=== PATIENT | male | born 1990 | race Caucasian/White ===

== ENCOUNTER 2025-03-17 09:00 | Outpatient (RCR) | payer OTHER, SELFPAY ==
--- NOTE | 2025-02-23 12:51 | OT.OPPOC ---
Physical, Occupational & Speech Therapy At [facility] Kevin Peck [id number] 1990 Visit Care Team Role Provider Type Julien Perry MD Attending Provider Physician Family Provider Primary Care Provider Referring Provider Address: [facility] [place], [address] Occupational Therapy Plan of Care OT Outpatient Adult Evaluation Start: 02/22/25 09:41 Freq: Status: Active Protocol: Document 02/23/25 09:00 (Rec: 02/22/25 09:45 [id number]) General Information - Adult Visit Information Visit Number Plan of Care Dates 02/23/25-05/18/25 Insurance no PA req'd;no copay;$125 deductible satisfied;max 60 Information PT/OT/ST combined Session Time Visit Start Date 02/23/25 Visit Start Time 09:00 Visit Stop Time 09:55 Setting Treatment Setting Outpatient Care Visit Type Note Type Initial Evaluation Referral Referring Physician Dr. Julien Perry Reason for Referral R shoulder pain Identification Identification Yes Confirmed Identification EMR Confirmed By Social Information Social History The pain has improved with the little bit of strengthening I was doing but I would like to be proactive in case it gets worse again Patient Questionnaires Quick Dash- Upper Extremity Quick Dash UE Score 22.7 Quick Dash UE 20 to 39% Impaired (Score 20-39) Impairment Quick Dash- Work and Sports Modules Quick Dash W&S Score W: 0 Quick Dash Work and 0% Impaired (Score 0) Sport Impairment Goals Objective Measurements Objective Cervical screen: Negative Measurements Neer?s test: Positive Gomez-Cody: Negative Painful arc: Present at approximately 140 degrees of flexion Empty can test: Negative Lift-off test: Positive for discomfort and mild rhomboid twinge Belly press test: Positive for mild rhomboid twinge ( not pain) Cross-body adduction test: Positive for AC joint pain AC joint palpation: Tenderness present O?Deandre?s test: Positive with palms up, negative with palms down Sulcus sign: Negative Load and shift test: Negative AROM/MMT: Within normal limits bilaterally Posture: Fair, mild anterior scapular tilt noted Pain: 1?2/10 currently, previously 5?6/10 at onset Additional observations: Tension throughout shoulder girdle; difficulty relaxing during PROM; compensatory upper trapezius activation with humeral elevation Treatment Treatment The patient was educated on the relationship between postural imbalance and muscle tension, emphasizing how overuse of anterior musculature and underuse of posterior stabilizers can contribute to shoulder dysfunction. Education included discussion of shoulder girdle tension, postural awareness, and the role of balanced strengthening for injury prevention and joint health, particularly considering the patient?s concerns regarding potential ankylosing spondylitis. Foam rolling techniques were introduced for the upper thoracic and scapular regions to promote relaxation and mobility, with plans to initiate a formal home exercise program at the next session. The patient demonstrated good understanding and motivation to prevent symptom progression. Short Term Goals Short Term Goals (Within 4 Weeks) 1. The patient will demonstrate independence with foam rolling and postural re-education program with correct form and body awareness to promote shoulder girdle relaxation and improved posture. 2. The patient will report decreased subjective shoulder tension and elimination of pain with daily activities including writing and typing, maintaining pain at or below 1/10. 3. The patient will demonstrate improved humeral elevation without compensatory shoulder hiking in at least 3/5 observed repetitions during therapeutic exercise. Mcc Goals Mcc Goals (Within 12 weeks): 1. The patient will demonstrate full functional use of the right upper extremity without clicking, popping, or pain during all work and leisure activities. 2. The patient will demonstrate symmetrical scapular alignment and improved posture with neutral scapular tilt at rest and during movement-based tasks. 3. The patient will achieve balanced strength of anterior and posterior shoulder stabilizers with all MMTs remaining within normal limits and pain-free. 4. The patient will verbalize understanding and demonstrate maintenance strategies, including independent use of self-massage, stretching, and strengthening techniques to prevent recurrence of symptoms. Assessment/Plan Assessment Patient Response Good Rehabilitation Good Potential Impairments ADLs,Body Mechanics,Flexibility,Functional Activities, Identified Pain,Weakness,Posture,Range of Motion,Recreational Activities,Meaningful Activities,Stiffness,Soft Tissue Mobility Treatment Assessment 34-year-old [id number] male referred for evaluation of right shoulder pain. He reports onset of symptoms approximately five months ago, describing an initial pain level of 5?6/10 localized near the humeral head and pectoral insertion, which has since improved with intermittent use of light resistance exercises prescribed by his physician. He currently reports pain of 1?2/10 with intermittent clicking and popping, particularly when the humerus is internally rotated during hyperextension. Pain was previously exacerbated by writing, typing, and opening jars but is now primarily associated with certain positions and tension localized around the right rhomboid region. Objective findings are most consistent with mild right shoulder impingement and AC joint irritation, with associated scapulothoracic muscle tension and postural imbalance. Positive Neer?s, cross-body adduction, and O ?Deandre?s (palms up) tests indicate potential irritation of the subacromial and acromioclavicular regions, while negative Gomez-Cody, empty can, and instability testing suggest that significant structural compromise is unlikely. The patient demonstrates mild anterior scapular tilt, upper trapezius overactivation with humeral elevation, and difficulty relaxing during passive motion, consistent with compensatory movement patterns and shoulder girdle tightness. Treatment will be guided by a movement-based and postural retraining approach emphasizing scapulothoracic rhythm, neuromuscular re-education, and soft tissue mobility. Focus will be placed on reducing muscle tension, improving balance between anterior and posterior stabilizers, and promoting functional alignment to prevent symptom recurrence. Given his concern about potential ankylosing spondylitis and long -term joint health, intervention will also incorporate education and self-management strategies for sustained postural awareness and prevention of inflammatory strain. Reviewed with Goals,Progress Being Made,Home Exercise Program Patient Patient Good Understanding Plan Length of treatment 12 (weeks) Plan of Care Start 02/23/25 Date Plan of Care End 05/18/25 Date Comment 1-2x/week PRN Treatment Frequency Twice a Week Treatment Duration 45 Minutes Therapeutic Contents Active Range of Motion,Client Education,Functional Activities,Home Exercise Program,Joint Protection, Manual Therapy,Education,Neuromuscular Re-Education, Self-Care,Stretching/Flexibility Activities,Therapeutic Activities,Therapeutic Exercises,Modalities Modalities As Needed Types of Modalities Ice Massage,Other Additional Types of MHP, paraffin Modalities Patient Instruction Plan of Care,Questions/Concerns Patient Continue with Current Program Recommendations Electronically Signed by: Kathia Mayfield OT 02/23/25 0552 If you are in agreement with this Plan of Care, please return a signed and dated copy. I have reviewed this Plan of Care and certify that the skilled therapy services above are required to meet the patient?s needs. Physician Signature Date Printed Name and Credentials Clinical Instructor Signature Printed Name and Credentials
--- NOTE | 2025-02-25 10:08 | OT.OP.TRT ---
Visit Care Team Role Provider Type Julien Perry MD Attending Provider Physician Family Provider Primary Care Provider Referring Provider Specialty: Family Practice Obstetrics [facility] [address], [place], [address] Email: [email or web address] Occupational Therapy Treatment Note OT Outpatient Treatment Note - Adult Start: 02/22/25 09:41 Freq: Status: Active Protocol: Document 02/25/25 09:00 (Rec: 02/24/25 11:58 [id number]) OT Outpatient Adult Treatment Note Session Time Visit Start Date 02/25/25 Visit Start Time 09:00 Visit Stop Time 09:45 Visit Information Visit Number Plan of Care Dates 02/23/25-05/18/25 Insurance no PA req'd;no copay;$125 deductible satisfied;max 60 Information PT/OT/ST combined Setting Treatment Setting Outpatient Care Visit Type Note Type Treatment Note - Subjective Identification Type Name Identification Medical Record Reconciled With Observations I do feel like there is some reduced tension just from today! - Objective Short Term Goals (Within 4 Weeks) 1. The patient will demonstrate independence with foam rolling and postural re-education program with correct form and body awareness to promote shoulder girdle relaxation and improved posture. 2. The patient will report decreased subjective shoulder tension and elimination of pain with daily activities including writing and typing, maintaining pain at or below 1/10. 3. The patient will demonstrate improved humeral elevation without compensatory shoulder hiking in at least 3/5 observed repetitions during therapeutic exercise. Group Home Goals (Within 12 weeks): 1. The patient will demonstrate full functional use of the right upper extremity without clicking, popping, or pain during all work and leisure activities. 2. The patient will demonstrate symmetrical scapular alignment and improved posture with neutral scapular tilt at rest and during movement-based tasks. 3. The patient will achieve balanced strength of anterior and posterior shoulder stabilizers with all MMTs remaining within normal limits and pain-free. 4. The patient will verbalize understanding and demonstrate maintenance strategies, including independent use of self-massage, stretching, and strengthening techniques to prevent recurrence of symptoms. - Treatment 1 Descriptor The patient was seen for initiation of a home exercise program and therapeutic education. The HEP included scapular retraction and depression, thoracic extension on foam roller (pt familiar with foam rolling, only verbally reviewed proper technique this date), doorway pectoral stretch, prone scapular setting (?T?), prone ( Y), supine serratus punch, and shoulder external rotation with light theraband. Each exercise was completed for 1x10 with maximal verbal and visual cues provided to ensure correct form and pacing. Education was provided throughout regarding the likely etiology of symptoms, relevant anatomy, and how strengthening posterior stabilizers while releasing anterior tension promotes improved postural balance, bony alignment, and scapulohumeral rhythm. The patient was instructed on safe and effective foam rolling technique, emphasizing slow and controlled movements along the spine to protect the lumbar region. A therapeutic tuning fork sequence was completed using 128 Hz and 256 Hz frequencies targeting the upper trapezius, rhomboids, pectoralis insertion, scapular border, and AC/ glenohumeral joints to reduce muscle tension, enhance proprioceptive feedback, and promote joint balance. The patient reported subjective improvement in shoulder girdle mobility and decreased muscular tension following treatment and demonstrated good understanding of all education provided. Visual Cues Max Cues Verbal Cues Max Cues Tolerance Excellent Modifications No Required Exercises 1 Descriptor 1x10 for the followin. Scapular retraction and depression 2. Doorway pectoral stretch 3. Prone scapular setting ?T? 4. Prone Y's 5. Supine serratus punch 6. Shoulder external rotation with light theraband Side Both Sets 1 Repetitions 10 Visual Cues Max Cues Verbal Cues Max Cues Tolerance Excellent Modifications No Required - Assessment Patient Response to Good Treatment Rehabilitation Good Potential Impairments ADLs,Flexibility,Functional Activities,Pain,Posture, Identified Range of Motion,Recreational Activities,Meaningful Activities,Stiffness,Soft Tissue Mobility Progress Towards Good Progress Goals Assessment of Improving Overall Progress Assessment of The patient demonstrated good participation and Improvement engagement throughout today?s session, responding positively to both neuromuscular and soft-tissue interventions. Improved shoulder girdle mobility and decreased tension following tuning fork application suggest that current symptoms are largely postural and muscular in nature, consistent with mild impingement and AC joint irritation secondary to anterior dominance and posterior chain under-recruitment. The patient shows good body awareness, motivation, and understanding of how therapeutic techniques address underlying imbalances contributing to discomfort. Given his positive response to intervention, strong motivation for prevention, and mild symptom severity, he demonstrates excellent rehabilitation potential. Continued skilled occupational therapy is indicated to reinforce scapular stabilization, progress strengthening, and restore full, pain-free movement patterns for long-term shoulder health and function. Home Exercise scapular retraction/depression, prone T's and Y/s, Program foam roller thoracic extension, pec stretch, supine serratus punch, shoulder external rotation with resistance band Reviewed with Goals,Progress Being Made,Home Exercise Program Patient/Caregiver Patient/Caregiver Good Understanding - Plan Therapy Continue with Current Program Recommendations Amount of Therapy 2-3 Months Recommended Comment 1-2x/week PRN Frequency of Twice a Week Treatment Length of Session 45 Minutes Therapeutic Contents Active Range of Motion,Client Education,Functional Activities,Home Exercise Program,Joint Protection, Manual Therapy,Education,Self-Care,Stretching/ Flexibility Activities,Therapeutic Activities, Therapeutic Exercises,Modalities Modalities As Needed Types of Modalities Ice Massage,Other Additional Types of MHP Modalities
--- NOTE | 2025-03-01 10:24 | OT.OP.TRT ---
Visit Care Team Role Provider Type Julien Perry MD Attending Provider Physician Family Provider Primary Care Provider Referring Provider Specialty: Family Practice Obstetrics [facility] [address], [place], [address] Email: [email or web address] Occupational Therapy Treatment Note OT Outpatient Treatment Note - Adult Start: 02/22/25 09:41 Freq: Status: Active Protocol: Document 03/01/25 09:00 (Rec: 02/25/25 10:36 [id number]) OT Outpatient Adult Treatment Note Session Time Visit Start Date 03/01/25 Visit Start Time 09:00 Visit Stop Time 09:45 Visit Information Visit Number 3 of Plan of Care Dates 02/23/25-05/18/25 Insurance no PA req'd;no copay;$125 deductible satisfied;max 60 Information PT/OT/ST combined Setting Treatment Setting Outpatient Care Visit Type Note Type Treatment Note - Subjective Identification Type Name Identification Medical Record Reconciled With Observations I got a massage this weekend and it definitely feels more loose Patient/Caregiver Excellent Compliance with Home Exercise Program - Objective Short Term Goals (Within 4 Weeks) 1. The patient will demonstrate independence with foam rolling and postural re-education program with correct form and body awareness to promote shoulder girdle relaxation and improved posture. 2. The patient will report decreased subjective shoulder tension and elimination of pain with daily activities including writing and typing, maintaining pain at or below 1/10. 3. The patient will demonstrate improved humeral elevation without compensatory shoulder hiking in at least 3/5 observed repetitions during therapeutic exercise. Skilled Nursing Goals (Within 12 weeks): 1. The patient will demonstrate full functional use of the right upper extremity without clicking, popping, or pain during all work and leisure activities. 2. The patient will demonstrate symmetrical scapular alignment and improved posture with neutral scapular tilt at rest and during movement-based tasks. 3. The patient will achieve balanced strength of anterior and posterior shoulder stabilizers with all MMTs remaining within normal limits and pain-free. 4. The patient will verbalize understanding and demonstrate maintenance strategies, including independent use of self-massage, stretching, and strengthening techniques to prevent recurrence of symptoms. - Manual Therapy Manual Therapy Moist heat pack was applied to the right shoulder girdle to promote soft tissue relaxation and prepare tissues for manual intervention. A tuning fork sequence was then performed using 128 Hz frequency over the upper trapezius, rhomboids, pectoralis major insertion, latissimus dorsi, and triceps insertion to decrease muscle tone and facilitate neuromuscular relaxation. This was followed by soft tissue massage to the same regions of the posterior shoulder and scapular complex to further reduce muscular tension and improve tissue extensibility. A contract?relax technique was then applied to the right upper trapezius and rhomboids to address trigger points and restore scapular mobility. Palpation revealed significant hypertonicity and restricted scapular glide at the start of treatment, with notable improvement in soft tissue pliability and scapular mobility?most significant at the right upper trapezius?by the end of session. The patient reported subjective improvement in both tension and ease of shoulder movement following session. - Assessment Patient Response to Good Treatment Rehabilitation Good Potential Impairments ADLs,Flexibility,Functional Activities,Pain,Posture, Identified Range of Motion,Recreational Activities,Meaningful Activities,Stiffness,Soft Tissue Mobility Progress Towards Good Progress Goals Assessment of Improving Overall Progress Assessment of The patient continues to present with marked shoulder Improvement girdle tightness and scapular restriction consistent with persistent soft tissue imbalance contributing to altered scapulohumeral rhythm. He responded positively to combined thermal, vibratory, and manual interventions with measurable improvement in tissue mobility and pain-free range. His compliance with the home exercise program remains excellent, demonstrating independence, insight into proper form, and the ability to self-correct technique for optimal muscle activation. Progress to date suggests strong carryover of therapeutic education and good integration of neuromuscular control strategies. The patient continues to make steady progress toward restoring normal scapular mobility and balanced muscle activation and will continue to benefit from skilled occupational therapy to further address soft tissue flexibility, postural alignment, and movement efficiency for sustained functional improvement. Home Exercise scapular retraction/depression, prone T's and Y/s, Program foam roller thoracic extension, pec stretch, supine serratus punch, shoulder external rotation with resistance band Reviewed with Goals,Progress Being Made,Home Exercise Program Patient/Caregiver Patient/Caregiver Good Understanding - Plan Therapy Continue with Current Program Recommendations Amount of Therapy 2-3 Months Recommended Comment 1-2x/week PRN Frequency of Twice a Week Treatment Length of Session 45 Minutes Therapeutic Contents Active Range of Motion,Client Education,Functional Activities,Home Exercise Program,Joint Protection, Manual Therapy,Education,Self-Care,Stretching/ Flexibility Activities,Therapeutic Activities, Therapeutic Exercises,Modalities Modalities As Needed Types of Modalities Ice Massage,Other Additional Types of MHP Modalities
--- NOTE | 2025-03-03 11:59 | OT.OP.TRT ---
Visit Care Team Role Provider Type Julien Perry MD Attending Provider Physician Family Provider Primary Care Provider Referring Provider Specialty: Family Practice Obstetrics [facility] [address], [place], [address] Email: [email or web address] Occupational Therapy Treatment Note OT Outpatient Treatment Note - Adult Start: 02/22/25 09:41 Freq: Status: Active Protocol: Document 03/03/25 11:54 (Rec: 03/03/25 11:58 [id number]) OT Outpatient Adult Treatment Note Session Time Visit Start Date 03/03/25 Visit Start Time 09:00 Visit Stop Time 10:00 Visit Information Visit Number 4 of 24 Plan of Care Dates 02/23/25-05/18/25 Insurance no PA req'd;no copay;$125 deductible satisfied;max 60 Information PT/OT/ST combined Setting Treatment Setting Outpatient Care Visit Type Note Type Treatment Note - Subjective Identification Type Name Identification Medical Record Reconciled With Observations I am definitely noticing increased range of motion in general and definitely increased pain-free motion Patient/Caregiver Excellent Compliance with Home Exercise Program - Objective Short Term Goals (Within 4 Weeks) 1. The patient will demonstrate independence with foam rolling and postural re-education program with correct form and body awareness to promote shoulder girdle relaxation and improved posture. 2. The patient will report decreased subjective shoulder tension and elimination of pain with daily activities including writing and typing, maintaining pain at or below 1/10. 3. The patient will demonstrate improved humeral elevation without compensatory shoulder hiking in at least 3/5 observed repetitions during therapeutic exercise. Alf Goals (Within 12 weeks): 1. The patient will demonstrate full functional use of the right upper extremity without clicking, popping, or pain during all work and leisure activities. 2. The patient will demonstrate symmetrical scapular alignment and improved posture with neutral scapular tilt at rest and during movement-based tasks. 3. The patient will achieve balanced strength of anterior and posterior shoulder stabilizers with all MMTs remaining within normal limits and pain-free. 4. The patient will verbalize understanding and demonstrate maintenance strategies, including independent use of self-massage, stretching, and strengthening techniques to prevent recurrence of symptoms. - Treatment 1 Descriptor The patient demonstrated good carryover from prior sessions, completing all progressed resistive exercises with minimal verbal and visual cues needed for correction. Form and muscle activation were appropriate , with evident improvement in scapular stability and reduction in compensatory shoulder hiking during movement. He tolerated Body Blade activities well, noting a moderate challenge and increased awareness of deeper stabilizing muscles without pain. Education was provided throughout regarding scapulohumeral rhythm, the role of posterior stabilizers in shoulder alignment , and strategies to maintain proper scapular positioning during dynamic tasks. Additional cues were provided for breathing and controlled pacing to enhance neuromuscular coordination. The patient verbalized understanding of all concepts and reported that the exercises felt productive and symptom-free. Exercises 1 Descriptor Reviewed prior HEP: scapular retraction/depression, foam roller thoracic extension, doorway pec stretch, prone ?T,? serratus punch, and external rotation with band. Progressed HEP with the following strengthening activities: Theraband Rows with level 2 band? 2 sets of 10 Standing ?W? External Rotation with level 2 band? 2 sets of 10 Prone ?Y? ? 2 sets of 10 Serratus Wall Slides with Band at wrists ? 2 sets of 10 Scaption with 1lb hand weights (thumbs up position) ? 2 sets of 10 Body Blade Trainin sets of 30 seconds each for scaption, shoulder flexion, and horizontal abduction/ adduction. Arm Bike: 5 minutes with light resistance focusing on scapular control and postural awareness during movement . Visual Cues Min Cues Verbal Cues Min Cues Tolerance Excellent Modifications No Required - Assessment Patient Response to Good Treatment Rehabilitation Good Potential Impairments ADLs,Flexibility,Functional Activities,Pain,Posture, Identified Range of Motion,Recreational Activities,Meaningful Activities,Stiffness,Soft Tissue Mobility Progress Towards Good Progress Goals Assessment of Improving Overall Progress Assessment of The patient continues to make excellent progress toward Improvement therapeutic goals, demonstrating improved strength, endurance, and motor control of the right shoulder complex. Observable reduction in scapular hiking and improved rhythm during both resistive and functional activities indicate enhanced coordination between the rotator cuff and scapular stabilizers. Pain remains minimal and brief, occurring only at end-range internal rotation with hyperextension. His tolerance for resistive progression and dynamic stabilization exercises reflects improved tissue mobility, postural awareness, and neuromuscular integration. The patient?s strong motivation, compliance with HEP, and consistent symptom reduction suggest a favorable prognosis for full functional recovery. Continued skilled occupational therapy will focus on reinforcing strength and endurance of the shoulder stabilizers and ensuring independence with a long-term maintenance program for sustained joint health and mobility. Home Exercise scapular retraction/depression, prone T's and Y/s, Program foam roller thoracic extension, pec stretch, supine serratus punch, shoulder external rotation with resistance band-PROGRESSED to add theraband standing rows, Serratus wall slides with band, scaption with light weights Reviewed with Goals,Progress Being Made,Home Exercise Program Patient/Caregiver Patient/Caregiver Good Understanding - Plan Therapy Continue with Current Program Recommendations Amount of Therapy 2-3 Months Recommended Comment 1-2x/week PRN Frequency of Twice a Week Treatment Length of Session 45 Minutes Therapeutic Contents Active Range of Motion,Client Education,Functional Activities,Home Exercise Program,Joint Protection, Manual Therapy,Education,Self-Care,Stretching/ Flexibility Activities,Therapeutic Activities, Therapeutic Exercises,Modalities Modalities As Needed Types of Modalities Ice Massage,Other Additional Types of MHP Modalities
--- NOTE | 2025-03-08 10:10 | OT.OP.TRT ---
Visit Care Team Role Provider Type Julien Perry MD Attending Provider Physician Family Provider Primary Care Provider Referring Provider Specialty: Family Practice Obstetrics [facility] [address], [place], [address] Email: [email or web address] Occupational Therapy Treatment Note OT Outpatient Treatment Note - Adult Start: 02/22/25 09:41 Freq: Status: Active Protocol: Document 03/08/25 09:00 (Rec: 03/04/25 12:53 [id number]) OT Outpatient Adult Treatment Note Session Time Visit Start Date 03/08/25 Visit Start Time 09:00 Visit Stop Time 10:00 Visit Information Visit Number 5 of 24 Plan of Care Dates 02/23/25-05/18/25 Insurance no PA req'd;no copay;$125 deductible satisfied;max 60 Information PT/OT/ST combined Setting Treatment Setting Outpatient Care Visit Type Note Type Treatment Note - Subjective Identification Type Name Identification Medical Record Reconciled With Observations It has seemed a bit more tense since increasing resistance but it feels a lot more mobile today after all those stretches Patient/Caregiver Excellent Compliance with Home Exercise Program - Objective Short Term Goals (Within 4 Weeks) 1. The patient will demonstrate independence with foam rolling and postural re-education program with correct form and body awareness to promote shoulder girdle relaxation and improved posture. 2. The patient will report decreased subjective shoulder tension and elimination of pain with daily activities including writing and typing, maintaining pain at or below 1/10. 3. The patient will demonstrate improved humeral elevation without compensatory shoulder hiking in at least 3/5 observed repetitions during therapeutic exercise. Fruit Grading Supervisor Goals (Within 12 weeks): 1. The patient will demonstrate full functional use of the right upper extremity without clicking, popping, or pain during all work and leisure activities. 2. The patient will demonstrate symmetrical scapular alignment and improved posture with neutral scapular tilt at rest and during movement-based tasks. 3. The patient will achieve balanced strength of anterior and posterior shoulder stabilizers with all MMTs remaining within normal limits and pain-free. 4. The patient will verbalize understanding and demonstrate maintenance strategies, including independent use of self-massage, stretching, and strengthening techniques to prevent recurrence of symptoms. - Treatment 1 Descriptor Session focused on education and guided practice of foam rolling and stretching techniques to address persistent myofascial tension contributing to shoulder and rib discomfort. Patient was instructed in strategies for identifying effective stretch positions by body awareness, recognizing areas of tenderness, and modulating pressure for tolerance. Foam rolling techniques were reviewed for the pectoralis major/minor , lateral rib wall, thoracic paraspinals, and rhomboids , emphasizing slow, mindful application and the option to rest and breathe into the roller rather than using continuous rolling motion. Education included discussion of modifications using a rolled towel or repositioning to distribute body weight and protect sensitive areas along the ribs. Patient performed and required maximal verbal and visual cues for correct return demonstration of thread- the-needle stretch, elbow circles (from a flexed position near shoulder height), chest openers, and pectoral doorway stretches with elbows bent. Education emphasized thoracic extension, controlled breathing, and the role of postural balance and soft tissue flexibility in maintaining shoulder mobility. Patient verbalized understanding and demonstrated improved quality of movement following practice. He was advised to maintain current strengthening resistance within HEP while prioritizing addition of stretching and foam rolling for recovery and balance. - Assessment Patient Response to Good Treatment Rehabilitation Good Potential Impairments ADLs,Flexibility,Functional Activities,Pain,Posture, Identified Range of Motion,Recreational Activities,Meaningful Activities,Stiffness,Soft Tissue Mobility Progress Towards Good Progress Goals Assessment of Improving Overall Progress Assessment of The patient demonstrated good participation and insight Improvement during today?s session, actively engaging in education and technique refinement for self-management of myofascial tension. Despite reporting mild increased shoulder tightness with progressive strengthening, pain remains stable, and tolerance for mobility activities has improved. Palpable and reported soft tissue restrictions appear consistent with myofascial tension along the anterior chest and interscapular regions, likely contributing to the positional rib discomfort described previously. Following guided practice, the patient reported increased mobility and ease of shoulder movement, supporting the hypothesis that symptoms are primarily muscular and postural in nature. Overall, the patient continues to make steady progress toward therapeutic goals, demonstrating good compliance with strengthening and growing independence in identifying and addressing areas of tension through stretching and self-mobilization. Continued skilled occupational therapy is indicated to reinforce proper movement mechanics, progress flexibility and postural endurance, and ensure long-term self-management strategies for maintaining shoulder and thoracic mobility. Home Exercise scapular retraction/depression, prone T's and Y/s, Program foam roller thoracic extension, pec stretch, supine serratus punch, shoulder external rotation with resistance band-PROGRESSED to add theraband standing rows, Serratus wall slides with band, scaption with light weights Reviewed with Goals,Progress Being Made,Home Exercise Program Patient/Caregiver Patient/Caregiver Good Understanding - Plan Therapy Continue with Current Program Recommendations Amount of Therapy 2-3 Months Recommended Comment 1-2x/week PRN Frequency of Twice a Week Treatment Length of Session 45 Minutes Therapeutic Contents Active Range of Motion,Client Education,Functional Activities,Home Exercise Program,Joint Protection, Manual Therapy,Education,Self-Care,Stretching/ Flexibility Activities,Therapeutic Activities, Therapeutic Exercises,Modalities Modalities As Needed Types of Modalities Ice Massage,Other Additional Types of MHP Modalities
--- NOTE | 2025-03-10 12:02 | OT.OP.TRT ---
Visit Care Team Role Provider Type Julien Perry MD Attending Provider Physician Family Provider Primary Care Provider Referring Provider Specialty: Family Practice Obstetrics [facility] [address], [place], [address] Email: [email or web address] Occupational Therapy Treatment Note OT Outpatient Treatment Note - Adult Start: 02/22/25 09:41 Freq: Status: Active Protocol: Document 03/10/25 09:00 (Rec: 03/08/25 10:14 [id number]) OT Outpatient Adult Treatment Note Session Time Visit Start Date 03/10/25 Visit Start Time 09:00 Visit Stop Time 09:55 Visit Information Visit Number 6 of 24 Plan of Care Dates 02/23/25-05/18/25 Insurance no PA req'd;no copay;$125 deductible satisfied;max 60 Information PT/OT/ST combined Setting Treatment Setting Outpatient Care Visit Type Note Type Treatment Note - Subjective Identification Type Name Identification Medical Record Reconciled With Observations I am really figuring out what you meant when you said I would be ungluing my shoulder from my ribs Patient/Caregiver Excellent Compliance with Home Exercise Program - Objective Short Term Goals (Within 4 Weeks) 1. The patient will demonstrate independence with foam rolling and postural re-education program with correct form and body awareness to promote shoulder girdle relaxation and improved posture. 2. The patient will report decreased subjective shoulder tension and elimination of pain with daily activities including writing and typing, maintaining pain at or below 1/10. 3. The patient will demonstrate improved humeral elevation without compensatory shoulder hiking in at least 3/5 observed repetitions during therapeutic exercise. Painting Trades Worker Goals (Within 12 weeks): 1. The patient will demonstrate full functional use of the right upper extremity without clicking, popping, or pain during all work and leisure activities. 2. The patient will demonstrate symmetrical scapular alignment and improved posture with neutral scapular tilt at rest and during movement-based tasks. 3. The patient will achieve balanced strength of anterior and posterior shoulder stabilizers with all MMTs remaining within normal limits and pain-free. 4. The patient will verbalize understanding and demonstrate maintenance strategies, including independent use of self-massage, stretching, and strengthening techniques to prevent recurrence of symptoms. - Exercises 1 Descriptor Session focused on progression of resistive and dynamic stabilization exercises to enhance scapulohumeral rhythm, postural control, and endurance. Patient completed Body Blade training for three 30-second bouts in scaption, horizontal abduction/adduction, and overhead positions with emphasis on maintaining proper posture, controlled breathing, and scapular stability throughout. He then completed 5 minutes on the arm bike at moderate resistance, alternating forward and backward intervals to reinforce symmetrical scapular glide and endurance without pain. Therapeutic strengthening emphasized functional, multi- planar movement patterns using cable resistance. The patient performed standing resistance band diagonal ( PNF D2) patterns with 1 lb of resistance in front of a mirror for self-monitoring. Initially, patient demonstrated scapular hiking and reported mild clicking /popping during movement, but with verbal and visual education on proper alignment and scapular control, he successfully self-corrected. Repetition of the exercise demonstrated smooth movement without clicking or compensation. Patient also performed horizontal shoulder abduction/adduction with 1 lb cable resistance for 2 sets of 10, demonstrating good form and tolerance without pain. Throughout all activities, education was provided regarding self-monitoring for scapular hiking, integrating scapular depression/ retraction into daily tasks (e.g., performing mirror checks or during restroom routines), and maintaining slow eccentric control. The patient demonstrated excellent understanding, self-awareness, and independent correction of posture and form by the end of the session. Side Both Visual Cues Min Cues Verbal Cues Min Cues Tolerance Excellent Modifications No Required - Assessment Patient Response to Good Treatment Rehabilitation Good Potential Impairments ADLs,Flexibility,Functional Activities,Pain,Posture, Identified Range of Motion,Recreational Activities,Meaningful Activities,Stiffness,Soft Tissue Mobility Progress Towards Good Progress Goals Assessment of Improving Overall Progress Assessment of The patient continues to make excellent progress, Improvement demonstrating improved neuromuscular control, scapular stability, and kinesthetic awareness. His ability to self-identify and correct scapular hiking during PNF and horizontal plane strengthening exercises indicates successful integration of postural and proprioceptive training. Reduction of clicking and popping with improved form further supports functional retraining of scapulothoracic mechanics and balanced muscle activation. He tolerated all activities without pain and verbalized a strong understanding of exercise purpose, alignment, and how to incorporate corrective postural strategies into daily routines. Overall, the patient presents with minimal remaining deficits, consistent compliance, and strong rehabilitation potential. Continued skilled occupational therapy will focus on consolidating motor learning, reinforcing endurance, and preparing for transition to independent home and gym-based maintenance. Home Exercise scapular retraction/depression, prone T's and Y/s, Program foam roller thoracic extension, pec stretch, supine serratus punch, shoulder external rotation with resistance band-PROGRESSED to add theraband standing rows, Serratus wall slides with band, scaption with light weights Reviewed with Goals,Progress Being Made,Home Exercise Program Patient/Caregiver Patient/Caregiver Good Understanding - Plan Therapy Continue with Current Program Recommendations Amount of Therapy 2-3 Months Recommended Comment 1-2x/week PRN Frequency of Twice a Week Treatment Length of Session 45 Minutes Therapeutic Contents Active Range of Motion,Client Education,Functional Activities,Home Exercise Program,Joint Protection, Manual Therapy,Education,Self-Care,Stretching/ Flexibility Activities,Therapeutic Activities, Therapeutic Exercises,Modalities Modalities As Needed Types of Modalities Ice Massage,Other Additional Types of MHP Modalities
--- NOTE | 2025-03-16 10:33 | OT.OP.TRT ---
Visit Care Team Role Provider Type Julien Perry MD Attending Provider Physician Family Provider Primary Care Provider Referring Provider Specialty: Family Practice Obstetrics [facility] [address], [place], [address] Email: [email or web address] Occupational Therapy Treatment Note OT Outpatient Treatment Note - Adult Start: 02/22/25 09:41 Freq: Status: Active Protocol: Document 03/16/25 10:30 (Rec: 03/16/25 10:33 [id number]) OT Outpatient Adult Treatment Note Session Time Visit Start Date 03/16/25 Visit Start Time 09:00 Visit Stop Time 09:45 Visit Information Visit Number 7 Plan of Care Dates 02/23/25-05/18/25 Insurance no PA req'd;no copay;$125 deductible satisfied;max 60 Information PT/OT/ST combined Setting Treatment Setting Outpatient Care Visit Type Note Type Treatment Note - Subjective Identification Type Name Identification Medical Record Reconciled With Observations I have been dealing with a migraine that is really killing me right now Patient/Caregiver Excellent Compliance with Home Exercise Program - Objective Short Term Goals (Within 4 Weeks) 1. The patient will demonstrate independence with foam rolling and postural re-education program with correct form and body awareness to promote shoulder girdle relaxation and improved posture. [MET 03/16/25] 2. The patient will report decreased subjective shoulder tension and elimination of pain with daily activities including writing and typing, maintaining pain at or below 1/10. 3. The patient will demonstrate improved humeral elevation without compensatory shoulder hiking in at least 3/5 observed repetitions during therapeutic exercise. Full Service Supervisor Goals (Within 12 weeks): 1. The patient will demonstrate full functional use of the right upper extremity without clicking, popping, or pain during all work and leisure activities. 2. The patient will demonstrate symmetrical scapular alignment and improved posture with neutral scapular tilt at rest and during movement-based tasks. 3. The patient will achieve balanced strength of anterior and posterior shoulder stabilizers with all MMTs remaining within normal limits and pain-free. 4. The patient will verbalize understanding and demonstrate maintenance strategies, including independent use of self-massage, stretching, and strengthening techniques to prevent recurrence of symptoms. - Manual Therapy Manual Therapy Patient presented with a mild migraine that began the previous day but was otherwise in good spirits and reported continued progress with his home exercise program. He noted consistent compliance with foam rolling, though tenderness in some regions has made it difficult to tolerate at times. Session focused on soft tissue mobilization to address persistent anterior shoulder and upper arm tightness. Manual techniques were performed to the pectoralis major and minor, anterior deltoid, and biceps bellies, revealing notable superficial tension and trigger points, particularly in the anterior deltoid and at the pectoralis major insertion. Following intervention, there was a palpable and reported improvement in tissue mobility and reduction in localized tenderness. Education was reinforced throughout the session regarding appropriate foam rolling technique, including adjustment of pressure and positioning for comfort, use of a softer-density roller for sensitive areas, and continued focus on the pectoral, rhomboid, and trapezius regions. The patient demonstrated understanding of proper technique and was able to describe how he integrates these concepts at home. He reported subjective improvement in shoulder mobility and reduction in discomfort following treatment. - Assessment Patient Response to Good Treatment Rehabilitation Good Potential Impairments ADLs,Flexibility,Functional Activities,Pain,Posture, Identified Range of Motion,Recreational Activities,Meaningful Activities,Stiffness,Soft Tissue Mobility Progress Towards Good Progress Goals Assessment of Improving Overall Progress Assessment of The patient continues to make steady progress toward Improvement therapeutic goals with improving soft tissue mobility, decreased muscle tension, and ongoing compliance with his home program. Today?s manual intervention effectively reduced anterior shoulder and upper arm tightness, contributing to improved mobility and symptom relief. His awareness of muscle balance, posture, and self-management strategies continues to expand, as evidenced by his ability to accurately describe foam rolling modifications and identify areas of residual tightness. Although mild migraine limited activity yesterday, he remains highly motivated and engaged in his rehabilitation process. Ongoing skilled occupational therapy will focus on maintaining soft tissue flexibility, progressing endurance and postural stability, and reinforcing self-management strategies to sustain long-term shoulder health and mobility. Home Exercise scapular retraction/depression, prone T's and Y/s, Program foam roller thoracic extension, pec stretch, supine serratus punch, shoulder external rotation with resistance band-PROGRESSED to add theraband standing rows, Serratus wall slides with band, scaption with light weights Reviewed with Goals,Progress Being Made,Home Exercise Program Patient/Caregiver Patient/Caregiver Good Understanding - Plan Therapy Continue with Current Program Recommendations Amount of Therapy 2-3 Months Recommended Comment 1-2x/week PRN Frequency of Twice a Week Treatment Length of Session 45 Minutes Therapeutic Contents Active Range of Motion,Client Education,Functional Activities,Home Exercise Program,Joint Protection, Manual Therapy,Education,Self-Care,Stretching/ Flexibility Activities,Therapeutic Activities, Therapeutic Exercises,Modalities Modalities As Needed Types of Modalities Ice Massage,Other Additional Types of MHP Modalities
--- NOTE | 2025-03-17 10:18 | OT.OP.DC ---
Visit Care Team Role Provider Type Julien Perry MD Attending Provider Physician Family Provider Primary Care Provider Referring Provider Address: [facility] [address] [place], [address] Email: [email or web address] OT Outpatient OT Outpatient Adult Evaluation Start: 02/22/25 09:41 Freq: Status: Active Protocol: Document 02/23/25 09:00 (Rec: 02/22/25 09:45 [id number]) General Information - Adult Visit Information Visit Number Plan of Care Dates 02/23/25-05/18/25 Insurance no PA req'd;no copay;$125 deductible satisfied;max 60 Information PT/OT/ST combined Session Time Visit Start Date 02/23/25 Visit Start Time 09:00 Visit Stop Time 09:55 Setting Treatment Setting Outpatient Care Visit Type Note Type Initial Evaluation Referral Referring Physician Dr. Julien Perry Reason for Referral R shoulder pain Identification Identification Yes Confirmed Identification EMR Confirmed By Social Information Social History The pain has improved with the little bit of strengthening I was doing but I would like to be proactive in case it gets worse again Patient Questionnaires Quick Dash- Upper Extremity Quick Dash UE Score 22.7 Quick Dash UE 20 to 39% Impaired (Score 20-39) Impairment Quick Dash- Work and Sports Modules Quick Dash W&S Score W: 0 Quick Dash Work and 0% Impaired (Score 0) Sport Impairment Goals Objective Measurements Objective Cervical screen: Negative Measurements Neer?s test: Positive Gomez-Cody: Negative Painful arc: Present at approximately 140 degrees of flexion Empty can test: Negative Lift-off test: Positive for discomfort and mild rhomboid twinge Belly press test: Positive for mild rhomboid twinge ( not pain) Cross-body adduction test: Positive for AC joint pain AC joint palpation: Tenderness present O?Deandre?s test: Positive with palms up, negative with palms down Sulcus sign: Negative Load and shift test: Negative AROM/MMT: Within normal limits bilaterally Posture: Fair, mild anterior scapular tilt noted Pain: 1?2/10 currently, previously 5?6/10 at onset Additional observations: Tension throughout shoulder girdle; difficulty relaxing during PROM; compensatory upper trapezius activation with humeral elevation Treatment Treatment The patient was educated on the relationship between postural imbalance and muscle tension, emphasizing how overuse of anterior musculature and underuse of posterior stabilizers can contribute to shoulder dysfunction. Education included discussion of shoulder girdle tension, postural awareness, and the role of balanced strengthening for injury prevention and joint health, particularly considering the patient?s concerns regarding potential ankylosing spondylitis. Foam rolling techniques were introduced for the upper thoracic and scapular regions to promote relaxation and mobility, with plans to initiate a formal home exercise program at the next session. The patient demonstrated good understanding and motivation to prevent symptom progression. Short Term Goals Short Term Goals (Within 4 Weeks) 1. The patient will demonstrate independence with foam rolling and postural re-education program with correct form and body awareness to promote shoulder girdle relaxation and improved posture. 2. The patient will report decreased subjective shoulder tension and elimination of pain with daily activities including writing and typing, maintaining pain at or below 1/10. 3. The patient will demonstrate improved humeral elevation without compensatory shoulder hiking in at least 3/5 observed repetitions during therapeutic exercise. Snf Goals Snf Goals (Within 12 weeks): 1. The patient will demonstrate full functional use of the right upper extremity without clicking, popping, or pain during all work and leisure activities. 2. The patient will demonstrate symmetrical scapular alignment and improved posture with neutral scapular tilt at rest and during movement-based tasks. 3. The patient will achieve balanced strength of anterior and posterior shoulder stabilizers with all MMTs remaining within normal limits and pain-free. 4. The patient will verbalize understanding and demonstrate maintenance strategies, including independent use of self-massage, stretching, and strengthening techniques to prevent recurrence of symptoms. Assessment/Plan Assessment Patient Response Good Rehabilitation Good Potential Impairments ADLs,Body Mechanics,Flexibility,Functional Activities, Identified Pain,Weakness,Posture,Range of Motion,Recreational Activities,Meaningful Activities,Stiffness,Soft Tissue Mobility Treatment Assessment 34-year-old [id number] male referred for evaluation of right shoulder pain. He reports onset of symptoms approximately five months ago, describing an initial pain level of 5?6/10 localized near the humeral head and pectoral insertion, which has since improved with intermittent use of light resistance exercises prescribed by his physician. He currently reports pain of 1?2/10 with intermittent clicking and popping, particularly when the humerus is internally rotated during hyperextension. Pain was previously exacerbated by writing, typing, and opening jars but is now primarily associated with certain positions and tension localized around the right rhomboid region. Objective findings are most consistent with mild right shoulder impingement and AC joint irritation, with associated scapulothoracic muscle tension and postural imbalance. Positive Neer?s, cross-body adduction, and O ?Deandre?s (palms up) tests indicate potential irritation of the subacromial and acromioclavicular regions, while negative Gomez-Cody, empty can, and instability testing suggest that significant structural compromise is unlikely. The patient demonstrates mild anterior scapular tilt, upper trapezius overactivation with humeral elevation, and difficulty relaxing during passive motion, consistent with compensatory movement patterns and shoulder girdle tightness. Treatment will be guided by a movement-based and postural retraining approach emphasizing scapulothoracic rhythm, neuromuscular re-education, and soft tissue mobility. Focus will be placed on reducing muscle tension, improving balance between anterior and posterior stabilizers, and promoting functional alignment to prevent symptom recurrence. Given his concern about potential ankylosing spondylitis and long -term joint health, intervention will also incorporate education and self-management strategies for sustained postural awareness and prevention of inflammatory strain. Reviewed with Goals,Progress Being Made,Home Exercise Program Patient Patient Good Understanding Plan Length of treatment 12 (weeks) Plan of Care Start 02/23/25 Date Plan of Care End 05/18/25 Date Comment 1-2x/week PRN Treatment Frequency Twice a Week Treatment Duration 45 Minutes Therapeutic Contents Active Range of Motion,Client Education,Functional Activities,Home Exercise Program,Joint Protection, Manual Therapy,Education,Neuromuscular Re-Education, Self-Care,Stretching/Flexibility Activities,Therapeutic Activities,Therapeutic Exercises,Modalities Modalities As Needed Types of Modalities Ice Massage,Other Additional Types of MHP, paraffin Modalities Patient Instruction Plan of Care,Questions/Concerns Patient Continue with Current Program Recommendations Functional Wrist/Hand Scan Hand Side Sensory Assessment Sensory Profile2 OT Outpatient Treatment Note - Adult Start: 02/22/25 09:41 Freq: Status: Active Protocol: Document 03/17/25 09:00 (Rec: 03/16/25 10:46 [id number]) OT Outpatient Adult Treatment Note Session Time Visit Start Date 03/17/25 Visit Start Time 09:00 Visit Stop Time 09:45 Visit Information Visit Number 8 of 24 Plan of Care Dates 02/23/25-05/18/25 Insurance no PA req'd;no copay;$125 deductible satisfied;max 60 Information PT/OT/ST combined Setting Treatment Setting Outpatient Care Visit Type Note Type Discharge Summary - Subjective Identification Type Name Identification Medical Record Reconciled With Observations I can't believe how much better it feels Patient/Caregiver Excellent Compliance with Home Exercise Program - Objective Objective Quick DASH: 11.4 (22.4 on eval 02/22); Work module: 0 ( Measurements 0 on eval 02/22) Short Term Goals (Within 4 Weeks) 1. The patient will demonstrate independence with foam rolling and postural re-education program with correct form and body awareness to promote shoulder girdle relaxation and improved posture. [MET 03/16/25] 2. The patient will report decreased subjective shoulder tension and elimination of pain with daily activities including writing and typing, maintaining pain at or below 1/10. [MET 03/17/25] 3. The patient will demonstrate improved humeral elevation without compensatory shoulder hiking in at least 3/5 observed repetitions during therapeutic exercise. [MET 03/17/25] Snf Goals (Within 12 weeks): 1. The patient will demonstrate full functional use of the right upper extremity without clicking, popping, or pain during all work and leisure activities. [MET ] 2. The patient will demonstrate symmetrical scapular alignment and improved posture with neutral scapular tilt at rest and during movement-based tasks. [MET ] 3. The patient will achieve balanced strength of anterior and posterior shoulder stabilizers with all MMTs remaining within normal limits and pain-free. [MET 03/17/25] 4. The patient will verbalize understanding and demonstrate maintenance strategies, including independent use of self-massage, stretching, and strengthening techniques to prevent recurrence of symptoms. [MET 03/17/25] - Treatment 1 Descriptor During today?s visit, the patient was re-tested and re- assessed for functional status and goal attainment. QuickDASH score improved from 22.4 at evaluation (02/22) to 11.4 at discharge (03/17/25), and Work Module remained 0, indicating no work-related limitations. Objective testing revealed full, pain-free right shoulder flexion, abduction, horizontal abduction, and extension without clicking, popping, or compensatory scapular hiking. The patient demonstrated symmetrical scapular alignment and normal scapulohumeral rhythm throughout all observed movements. Education was provided regarding ongoing home management, including proper techniques for stretching, self-massage, foam rolling, and use of the theracane. Discussion included strategies for maintaining shoulder mobility, postural endurance, and safe strengthening progression to prevent recurrence of symptoms. The patient verbalized thorough understanding of all education, demonstrated independent and correct execution of home program exercises, and expressed satisfaction with his functional recovery and symptom resolution. Discharge instructions were reviewed, including monitoring for any recurrence of pain, modification of activity as needed, and guidance that a new referral can be requested if symptoms return or new concerns arise. - Assessment Patient Response to Good Treatment Rehabilitation Good Potential Impairments ADLs,Flexibility,Functional Activities,Pain,Posture, Identified Range of Motion,Recreational Activities,Meaningful Activities,Stiffness,Soft Tissue Mobility Progress Towards Goals Met,Appropriate for Discharge Goals Assessment of Improving Overall Progress Assessment of The patient is a 34-year-old antsm-[id number] male Improvement who was referred for outpatient occupational therapy on 02/22/25 for evaluation and treatment of right shoulder pain that had been present for approximately five months prior to referral. At the time of evaluation, he reported intermittent pain rated 5?6/10 localized to the anterior shoulder near the humeral head and pectoral insertion, with aggravation during writing, typing, and overhead movements. Examination revealed mild anterior scapular tilt, tension through the shoulder girdle, and compensatory scapular hiking with humeral elevation. Positive findings for Neer?s test and cross-body adduction were consistent with mild impingement and AC joint irritation, without evidence of rotator cuff tear or instability. Over the course of treatment, skilled interventions included progressive resistive and postural strengthening, scapular stabilization training, soft tissue mobilization, tuning fork therapy, body blade and dynamic stability training, ergonomic education, and instruction in a comprehensive home exercise and self-management program. Education also focused on postural awareness, balanced activation of anterior and posterior stabilizers, and the use of foam rolling and stretching for maintenance. The patient was highly compliant and demonstrated insight into body mechanics and muscle balance, integrating corrective strategies into daily activities. Since beginning therapy, the patient has made excellent progress, achieving all short- and long-term goals with marked improvement in shoulder mobility, strength, posture, and pain reduction. He currently demonstrates full functional use of the right upper extremity without pain, clicking, or compensatory movement, and QuickDASH scores reflect significant improvement in overall function. Given resolution of symptoms, achievement of all goals, and independent carryover of therapeutic strategies, discharge from occupational therapy is appropriate at this time. The patient verbalized confidence in his ability to self-manage ongoing care and understands that if symptoms recur or new limitations develop, he may contact his provider for a new referral. Home Exercise scapular retraction/depression, prone T's and Y/s, Program foam roller thoracic extension, pec stretch, supine serratus punch, shoulder external rotation with resistance band-PROGRESSED to add theraband standing rows, Serratus wall slides with band, scaption with light weights Reviewed with Goals,Progress Being Made,Home Exercise Program Patient/Caregiver Patient/Caregiver Good Understanding - Plan Therapy Discharge to Home Exercise Program Recommendations Amount of Therapy No Further Therapy Recommended Frequency of No Further Therapy Treatment
== END 2025-03-18 13:14 | disposition home or self-care (01) ==
LOC: OT 09:00
PROVIDERS: Family Provider Family Medicine; PCP Family Medicine; Referring Provider Family Medicine; Visit Provider Family Medicine
DX: M25.511 Pain in right shoulder (principal)
CPT/HCPCS: 97110; 97140; 97165; 97530